=== PATIENT | female | born 1945 | race Caucasian/White ===

== ENCOUNTER 2020-03-16 15:11 | Emergency (ER) | payer MEDICARE ==
[~2020-03-16] VITALS: Ht 162.6 cm; Wt 54.0 kg
[~2020-03-16 15:11] MED LIST: ASCO-96 PO; ASPI-496 PO; ATOR40TA78 PO; CALCIUM PO; CLOP75TA PO; HYDR25TA6 PO; LATA7.5D EACHEYE; LOSA25TA25 PO; MULT-658 PO; PRAV20TA2 PO; PRAV40TA2 PO; SERT25TA PO
--- NOTE | 2020-03-16 15:58 | NUR ---
This is a 75y/o female arriving from urgent care for onset of right sided numbness s/p taking a tramdol. pt has hx of stroke and was concerned she was having one. Pt reports that she has had some chronic back pain and upper scapular area pain and has had no releif. Pt reports that during physcial therapy she has been working pretty hard and associates her back pain to that. Pt denies any trauma. Pts has low NIH score 2 only for sensory. Pt has good strenght and gross neuro skills are intact. vss
--- NOTE | 2020-03-16 16:00 | NUR ---
pt connected to monitor and pillow provided.
[2020-03-16] MEDS ORDERED: CHOL10003 PO (16:06)
[2020-03-16] MEDS ORDERED: ONDANSETRON 2MG/ML, 2ML ONE (17:28)
[2020-03-16] MEDS ORDERED: FENTANYL PF 100 MCG/2ML ONE ×2 (17:28→17:29)
[2020-03-16] MEDS ORDERED: ONDANSETRON 2MG/ML, 2ML IVPush ONE (17:30)
[2020-03-16] MEDS ORDERED: FENTANYL PF 100 MCG/2ML IV ONE (17:30)
[2020-03-16 17:37] LABS: ALBUMIN 3.1 g/dL (3.4-5.0); ANION GAP 5 mmol/L (5-15); CALCIUM 9.4 mg/dL (8.5-10.1); CHLORIDE 109 mmol/L (98-107)
[2020-03-16 17:41] LABS: ALANINE AMINOTRANSFERASE 29 U/L (12-78); ALKALINE PHOSPHATASE 184 U/L (45-117); BILIRUBIN,TOTAL 0.4 mg/dL (0.2-1.0); CREATININE 0.78 mg/dL (0.55-1.02); TOTAL PROTEIN 6.4 g/dL (6.4-8.2)
--- NOTE | 2020-03-16 17:50 | NUR ---
Pt medicated per emar, PIV placed by collar closer lockstitch student. Pt tolerated well. Pt glasses placed in her purse which went with patient to MRI.
--- NOTE | 2020-03-16 17:56 | NUR ---
Pt to MRI
--- NOTE | 2020-03-16 19:08 | NUR ---
Pt remains at MRI
--- NOTE | 2020-03-16 19:33 | NUR ---
Pt blood drawn.
[2020-03-16 19:34] VITALS: BP 116/54
[2020-03-16 20:04] LABS: MEAN CORPUSCULAR HEMOGLOBIN 30.4 pg (27.0-34.8); RED BLOOD COUNT 4.21 x10^6/uL (3.82-5.3); RED CELL DISTRIBUTION WIDTH 13.8 % (9.6-15.2)
[2020-03-16 20:05] LABS: MEAN PLATELET VOLUME 7.9 fL (7.4-10.4); PLATELET COUNT 230 x10^3/uL (130-400)
[2020-03-16 20:18] LABS: BASOPHILS # (AUTO) 0.03 x10^3/uL (0-0.1); BASOPHILS % (AUTO) 0 % (0-1); EOSINOPHILS # (AUTO) 0.04 x10^3/uL (0-0.4); EOSINOPHILS % (AUTO) 1 % (1-7); LYMPHOCYTES # (AUTO) 3.02 x10^3/uL (1-3.4); LYMPHOCYTES % (AUTO) 32 % (22-44); MD SCAN; MONOCYTES # (AUTO) 1.26 x10^3/uL (0.2-0.8); MONOCYTES % (AUTO) 13 % (2-9); NEUTROPHILS % (AUTO) 54 % (42-75)
[2020-03-16] MEDS ORDERED: LIDODERM 5% PATCH TD ONE ×2 (20:26→20:30)
[2020-03-16] MEDS ORDERED: METHOCARBAMOL 750 MG TABLET ONE (20:26)
[2020-03-16] MEDS ORDERED: METHOCARBAMOL 750 MG TABLET PO ONE (20:30)
--- NOTE | 2020-03-16 20:43 | NUR ---
Patient/Caregiver given discharge instructions and they have confirmed that they understand the instructions. Patient ambulatory with steady gait.
== END 2020-03-16 20:45 | disposition home or self-care (01) ==
LOC: ED 15:40
DX: R20.2 Paresthesia of skin (principal); T40.4X5A Adverse effect of other synthetic narcotics, initial encounter; M54.9 Dorsalgia, unspecified; R11.0 Nausea; R51 Headache; R47.81 Slurred speech; I10 Essential (primary) hypertension; Z86.73 Personal history of transient ischemic attack (TIA), and cerebral infarction without residual deficits; Y92.89 Other specified places as the place of occurrence of the external cause
CPT/HCPCS: 36415; 70450; 70551; 72146; 72148; 80053; 85025; 93005; 99285; J2405; J3010

== ENCOUNTER → 2020-03-20 | Outpatient (CLI) | payer MEDICARE ==
[~2020-03-20] MED LIST changes: +CHOL10003 PO
== END | disposition home or self-care (01) ==
LOC: CVU 13:24
PROVIDERS: ATTEND Internal Medicine Cardiovascular Disease
DX: I65.23 Occlusion and stenosis of bilateral carotid arteries (principal); I63.9 Cerebral infarction, unspecified
CPT/HCPCS: 93880

== ENCOUNTER 2020-06-17 10:10 | Day surgery (SDC) | payer MEDICARE ==
[~2020-06-17] VITALS: Ht 162.6 cm; Wt 54.1 kg
[2020-06-17] MEDS ORDERED: LIDOCAINE 2%, 20ML ONE (10:54)
== END 2020-06-17 12:04 | disposition home or self-care (01) ==
LOC: CACL 10:10
PROVIDERS: ATTEND Internal Medicine Cardiovascular Disease
DX: I63.9 Cerebral infarction, unspecified (principal); I10 Essential (primary) hypertension; E78.2 Mixed hyperlipidemia; Z79.891 Long term (current) use of opiate analgesic; Z79.899 Other long term (current) drug therapy; Z88.2 Allergy status to sulfonamides
CPT/HCPCS: 33285; C1764

== ENCOUNTER 2020-07-29 15:08 | Emergency (ER) | payer MEDICARE ==
[~2020-07-29] VITALS: Ht 162.6 cm; Wt 56.7 kg
[~2020-07-29 15:08] MED LIST changes: +APIX5TAB PO
[2020-07-29 15:11] VITALS: BP 154/81
[2020-07-29 15:51] LABS: ALANINE AMINOTRANSFERASE 47 U/L (12-78); CALCIUM 10.1 mg/dL (8.5-10.1)
[2020-07-29 15:53] LABS: ALKALINE PHOSPHATASE 299 U/L (45-117); BILIRUBIN,TOTAL 0.3 mg/dL (0.2-1.0); TOTAL PROTEIN 6.2 g/dL (6.4-8.2)
[2020-07-29 15:58] LABS: ANION GAP 7 mmol/L (5-15); CHLORIDE 122 mmol/L (98-107)
[2020-07-29 16:09] LABS: INTERNATIONAL NORMALIZED RATIO 1.05 (0.93-1.1); PROTHROMBIN TIME 11.1 Seconds (9.6-11.5)
[2020-07-29 17:02] LABS: RED BLOOD COUNT 3.54 x10^6/uL (3.82-5.3)
[2020-07-29 17:03] LABS: MEAN CORPUSCULAR HEMOGLOBIN 30.5 pg (27.0-34.8); MEAN CORPUSCULAR HGB CONC 33.1 g/dL (32.4-35.8); MEAN PLATELET VOLUME 8.6 fL (7.4-10.4); RED CELL DISTRIBUTION WIDTH 13.8 % (9.6-15.2)
[2020-07-29 17:04] LABS: LYMPHOCYTES % (AUTO) 27 % (22-44); NEUTROPHILS % (AUTO) 55 % (42-75)
[2020-07-29 17:05] LABS: BASOPHILS % (AUTO) 0 % (0-1); EOSINOPHILS % (AUTO) 1 % (1-7); MD SCAN; MONOCYTES % (AUTO) 16 % (2-9)
[2020-07-29 17:07] LABS: PLATELET COUNT 187 x10^3/uL (130-400)
== END 2020-07-29 18:23 | disposition left against medical advice (07) ==
LOC: ED 18:17
DX: K92.2 Gastrointestinal hemorrhage, unspecified (principal)
CPT/HCPCS: 36415; 80053; 85025; 85610; 86850; 86900; 99283

== ENCOUNTER 2020-08-16 09:39 | Day surgery (SDC) | payer MEDICARE | END 2020-08-16 10:38 | disposition home or self-care (01) | LOC: CACL 09:39 | PROVIDERS: ATTEND Internal Medicine Cardiovascular Disease | DX: I63.89 Other cerebral infarction (principal); Z53.8 Procedure and treatment not carried out for other reasons; I48.91 Unspecified atrial fibrillation; E78.2 Mixed hyperlipidemia; I10 Essential (primary) hypertension; Z88.2 Allergy status to sulfonamides; Z88.1 Allergy status to other antibiotic agents; Z79.01 Long term (current) use of anticoagulants; Z79.899 Other long term (current) drug therapy; Z98.890 Other specified postprocedural states | CPT/HCPCS: 93005 ==

== ENCOUNTER 2020-09-06 07:03 | Inpatient (IN) | payer MEDICARE ==
[~2020-09-06] VITALS: Ht 162.6 cm; Wt 55.0 kg
[2020-09-06 07:48] VITALS: BP 136/66
[2020-09-06] MEDS ORDERED: DIURETIC (07:48)
[2020-09-06] MEDS ORDERED: FLEC50TA25 PO (07:48)
[2020-09-06] MEDS ORDERED: CEFAZOLIN PMX 1GM/50ML 50 ML ONE (08:04)
[2020-09-06] MEDS ORDERED: CEFAZOLIN 1,000 MG ONE (08:04)
[2020-09-06] MEDS ORDERED: LIDOCAINE 2%, 20ML ONE ×2 (08:04→10:31)
[2020-09-06] MEDS ORDERED: MIDAZOLAM 1 MG/ML, 5ML ONE (08:04)
[2020-09-06] MEDS ORDERED: FENTANYL PF 100 MCG/2ML ONE (08:04)
[2020-09-06 08:45] LABS: ANION GAP 7 mmol/L (5-15); CHLORIDE 110 mmol/L (98-107); CREATININE 0.88 mg/dL (0.55-1.02)
[2020-09-06 09:33] LABS: BASOPHILS % (AUTO) 0 % (0-1); MEAN CORPUSCULAR HEMOGLOBIN 30.6 pg (27.0-34.8)
[2020-09-06 09:35] LABS: EOSINOPHILS % (AUTO) 1 % (1-7); LYMPHOCYTES % (AUTO) 24 % (22-44); MEAN CORPUSCULAR HGB CONC 32.9 g/dL (32.4-35.8); MEAN PLATELET VOLUME 8.4 fL (7.4-10.4); MONOCYTES % (AUTO) 12 % (2-9); NEUTROPHILS % (AUTO) 63 % (42-75); RED CELL DISTRIBUTION WIDTH 14.7 % (9.6-15.2)
[2020-09-06 09:57] LABS: PLATELET COUNT 134 x10^3/uL (130-400)
[2020-09-06 09:58] LABS: MD SCAN
[2020-09-06] MEDS ORDERED: HOLD MEDICATION MC PRN (11:30)
[2020-09-06] MEDS ORDERED: HYDROcodone/APAP 5/325 TABLET PO PRN (11:30)
[2020-09-06] MEDS ORDERED: ZOLPIDEM 5MG TABLET PO PRN (11:30)
[2020-09-06] MEDS ORDERED: ACETAMINOPHEN 325 MG TABLET PO PRN (11:30)
[2020-09-06 12:58] VITALS: BP 145/77
[2020-09-06] MEDS: CEFAZOLIN PMX 1GM/50ML 50 ML IVPB SCH (18:32)
[2020-09-06 19:49] VITALS: BP 138/74
[2020-09-06] MEDS: SODIUM CHLORIDE FLUSH 10ML SYR IVF SCH (21:23)
[2020-09-07] VITALS (7 sets, daily range): BP systolic 121–147; BP diastolic 66–82
[2020-09-07] MEDS: CEFAZOLIN PMX 1GM/50ML 50 ML IVPB SCH (02:55)
[2020-09-07] MEDS ORDERED: AMIODARONE 50 MG/ML, 3ML IVPush ONE (03:30)
[2020-09-07] MEDS ORDERED: AMIODARONE 150 MG in DEXTROSE 5% 100 ML IV ONE ×3 (04:00→09:00)
[2020-09-07] MEDS ORDERED: FILTER 0.22 MICRON IV ONE (04:00)
[2020-09-07] MEDS ORDERED: METOPROLOL TARTRATE 25 MG TAB PO SCH (09:00)
[2020-09-07] MEDS: APIXABAN 5 MG TABLET PO SCH ×2 (09:18→21:54)
[2020-09-07] MEDS: AMIODARONE 450 MG in DEXTROSE 5% 241 ML IV PRN ×2 (09:19→15:56)
[2020-09-07] MEDS: FILTER 0.22 MICRON FOR AMIODARONE IV PRN (09:20)
[2020-09-07] MEDS: SODIUM CHLORIDE FLUSH 10ML SYR IVF SCH ×2 (09:20→21:54)
[2020-09-07] MEDS ORDERED: FUROSEMIDE 40 MG/4 ML ONE (11:26)
[2020-09-07] MEDS ORDERED: POTASSIUM CHLORIDE 10 MEQ TABLET.ER ONE (11:26)
[2020-09-07] MEDS ORDERED: POTASSIUM CHLORIDE 10 MEQ TABLET.ER PO ONE (11:30)
[2020-09-07] MEDS ORDERED: FUROSEMIDE 40 MG/4 ML IV ONE (11:30)
[2020-09-07] MEDS ORDERED: METO50TA82 PO (16:04)
[2020-09-07] MEDS ORDERED: FURO20TA3 PO (16:05)
[2020-09-07] MEDS: METOPROLOL TARTRATE 50 MG TAB PO SCH (18:09)
[2020-09-08] VITALS (7 sets, daily range): BP systolic 108–134; BP diastolic 63–85
[2020-09-08 06:06] LABS: ANION GAP 8 mmol/L (5-15); CALCIUM 9.1 mg/dL (8.5-10.1); CHLORIDE 110 mmol/L (98-107); CREATININE 0.73 mg/dL (0.55-1.02)
[2020-09-08] MEDS: METOPROLOL TARTRATE 50 MG TAB PO SCH ×2 (06:21→18:25)
[2020-09-08] MEDS: FILTER 0.22 MICRON FOR AMIODARONE IV PRN (06:22)
[2020-09-08] MEDS: AMIODARONE 450 MG in DEXTROSE 5% 241 ML IV PRN ×2 (06:22→14:25)
[2020-09-08 07:31] LABS: BASOPHILS % (AUTO) 0 % (0-1)
[2020-09-08 07:32] LABS: EOSINOPHILS % (AUTO) 1 % (1-7); LYMPHOCYTES % (AUTO) 26 % (22-44); MEAN CORPUSCULAR HEMOGLOBIN 30.5 pg (27.0-34.8); MEAN CORPUSCULAR HGB CONC 32.9 g/dL (32.4-35.8); MONOCYTES % (AUTO) 15 % (2-9); NEUTROPHILS % (AUTO) 58 % (42-75); RED BLOOD COUNT 4.45 x10^6/uL (3.82-5.3); RED CELL DISTRIBUTION WIDTH 14.8 % (9.6-15.2)
[2020-09-08] MEDS: APIXABAN 5 MG TABLET PO SCH ×2 (07:57→21:13)
[2020-09-08] MEDS: SODIUM CHLORIDE FLUSH 10ML SYR IVF SCH ×2 (07:58→21:13)
[2020-09-08 08:16] LABS: MEAN PLATELET VOLUME 8.2 fL (7.4-10.4); PLATELET COUNT 162 x10^3/uL (130-400)
[2020-09-08 08:18] LABS: MD SCAN
[2020-09-08] MEDS ORDERED: POTASSIUM CHLORIDE 20 MEQ TAB.ER.PRT PO ONE (09:30)
[2020-09-08] MEDS: AMIODARONE 200 MG TABLET PO SCH ×2 (09:44→21:13)
[2020-09-08] MEDS ORDERED: CALCIUM CARBONATE 500 MG TAB.CHEW PO PRN (21:00)
[2020-09-09 01:26] VITALS: BP 134/80
[2020-09-09] MEDS: METOPROLOL TARTRATE 50 MG TAB PO SCH (05:52)
[2020-09-09] MEDS: AMIODARONE 450 MG in DEXTROSE 5% 241 ML IV PRN (06:04)
[2020-09-09 06:30] LABS: ANION GAP 6 mmol/L (5-15); CALCIUM 9.1 mg/dL (8.5-10.1); CHLORIDE 108 mmol/L (98-107); CREATININE 0.89 mg/dL (0.55-1.02)
[2020-09-09] MEDS ORDERED: SODIUM CHLORIDE 0.9% 1,000 ML IV SCH (07:00)
[2020-09-09 07:43] VITALS: BP 114/67
[2020-09-09] MEDS ORDERED: AMIODARONE 450 MG in DEXTROSE 5% 241 ML IV PRN (09:00)
[2020-09-09 09:05] VITALS: BP 118/66
[2020-09-09] MEDS: SODIUM CHLORIDE FLUSH 10ML SYR IVF SCH (09:07)
[2020-09-09] MEDS: AMIODARONE 200 MG TABLET PO SCH (09:08)
[2020-09-09] MEDS: APIXABAN 5 MG TABLET PO SCH (09:08)
[2020-09-09] MEDS ORDERED: AMIO200T42 PO (11:00)
== END 2020-09-09 13:29 | disposition home or self-care (01) | DRG 242 ==
LOC: CACL 07:03 → 5SO 11:10 → CACL 13:21 → OBSVTOIN 09-07 08:54 → DCLOUNGE 09-09 13:24
PROVIDERS: ADMIT Internal Medicine Cardiovascular Disease; ATTEND Internal Medicine Cardiovascular Disease
PROC: 02H63JZ Insertion of Pacemaker Lead into Right Atrium, Percutaneous Approach (ICD-10-PCS; principal; 2020-09-06)
PROC: 02HK3JZ Insertion of Pacemaker Lead into Right Ventricle, Percutaneous Approach (ICD-10-PCS; 2020-09-06)
PROC: 0JH606Z Insertion of Pacemaker, Dual Chamber into Chest Subcutaneous Tissue and Fascia, Open Approach (ICD-10-PCS; 2020-09-06)
PROC: 0JPT02Z Removal of Monitoring Device from Trunk Subcutaneous Tissue and Fascia, Open Approach (ICD-10-PCS; 2020-09-06)
DX: I49.5 Sick sinus syndrome (principal); I50.33 Acute on chronic diastolic (congestive) heart failure; D68.69 Other thrombophilia; E87.6 Hypokalemia; I11.0 Hypertensive heart disease with heart failure; I48.0 Paroxysmal atrial fibrillation; Z20.822 Contact with and (suspected) exposure to COVID-19; Z79.01 Long term (current) use of anticoagulants; Z86.73 Personal history of transient ischemic attack (TIA), and cerebral infarction without residual deficits
CPT/HCPCS: 33208; 33286; 36415; 71045; 71046; 80048; 85025; 87635; 99156; 99157; C1779; C1785; C1892; G0378; J0690; J1940; J2250; J3010; J7060; J0282

== ENCOUNTER → 2021-03-21 | Outpatient (CLI) | payer MEDICARE ==
[~2021-03-21] MED LIST changes: +AMIO200T42 PO; +DIURETIC; +FLEC50TA25 PO; +FURO20TA3 PO; +METO50TA82 PO
[2021-03-21 09:46] LABS: BASOPHILS % (AUTO) 1 % (0-1); RED CELL DISTRIBUTION WIDTH 14.4 % (9.6-15.2)
[2021-03-21 09:48] LABS: EOSINOPHILS % (AUTO) 1 % (1-7); LYMPHOCYTES % (AUTO) 22 % (22-44); MEAN CORPUSCULAR HEMOGLOBIN 31.2 pg (27.0-34.8); MEAN CORPUSCULAR HGB CONC 33.1 g/dL (32.4-35.8); MEAN PLATELET VOLUME 7.7 fL (7.4-10.4); MONOCYTES % (AUTO) 15 % (2-9); NEUTROPHILS % (AUTO) 62 % (42-75); RED BLOOD COUNT 3.95 x10^6/uL (3.82-5.3)
[2021-03-21 09:52] LABS: MICROSCOPIC AUTO
[2021-03-21 09:57] LABS: ALANINE AMINOTRANSFERASE 28 U/L (12-78); ALBUMIN 3.2 g/dL (3.4-5.0); CREATININE 1.63 mg/dL (0.55-1.02); IRON LEVEL 96 mcg/dL (50-170)
[2021-03-21 10:00] LABS: % IRON SATURATION 28 % (20-55); ALKALINE PHOSPHATASE 180 U/L (45-117); BILIRUBIN,TOTAL 0.5 mg/dL (0.2-1.0); TOTAL IRON BINDING CAPACITY 339 mcg/dL (250-450)
[2021-03-21 10:13] LABS: PLATELET COUNT 222 x10^3/uL (130-400)
[2021-03-21 10:24] LABS: ANION GAP 6 mmol/L (5-15); CHLORIDE 106 mmol/L (98-107)
== END | disposition home or self-care (01) ==
LOC: LAB 09:14
PROVIDERS: ATTEND Surgery
DX: I12.9 Hypertensive chronic kidney disease with stage 1 through stage 4 chronic kidney disease, or unspecified chronic kidney disease (principal); N18.2 Chronic kidney disease, stage 2 (mild); E87.3 Alkalosis; I48.91 Unspecified atrial fibrillation; E55.9 Vitamin D deficiency, unspecified; D64.9 Anemia, unspecified; D69.6 Thrombocytopenia, unspecified; R79.9 Abnormal finding of blood chemistry, unspecified; Z79.899 Other long term (current) drug therapy
CPT/HCPCS: 36415; 80053; 81001; 82306; 82728; 83540; 83550; 84550; 85025; 87086